=== PATIENT | female | born 1995 | race African-American/Black ===

== ENCOUNTER 2018-09-23 21:44 | Emergency (ER) | payer SELFPAY ==
--- NOTE | 2018-09-23 23:11 | ER Document Report ---
ED General - General Chief Complaint: Low Back Pain Stated Complaint: FEVER/FLANK PAIN Time Seen by Provider: 09/23/18 22:52 Notes: Patient is a 23-year-old female presents with complaint of urinary frequency and bilateral lower back pain is been ongoing for 2 days. She does not have a history of kidney stones or frequent UTIs. No fevers. No vomiting. No nausea. No diarrhea. No anterior abdominal pain. No abnormal vaginal discharge or bleeding. No other complaints at this time. Her only past medical history is asthma which she occasionally uses albuterol inhaler for. She does not smoke drink or do drugs. TRAVEL OUTSIDE OF THE [place] IN LAST 30 DAYS: No - Related Data Allergies/Adverse Reactions: fish derived [Fish derived] Allergy (Intermediate, Verified 09/23/18 21:51) VOMITING Past Medical History - Social History Smoking Status: Never Smoker Frequency of alcohol use: None Drug Abuse: None Family History: Reviewed & Not Pertinent - Past Medical History Cardiac Medical History: Reports: Hx Hypertension - pre-eclampsia during last Pulmonary Medical History: Reports: Hx Asthma Past Surgical History: Reports: Hx Section - December - Immunizations Hx Diphtheria, Pertussis, Tetanus Vaccination: No Review of Systems - Review of Systems Notes: My Normal Review Basic REVIEW OF SYSTEMS: CONSTITUTIONAL : Denies fever, chills, or sweats. Denies recent illness. RESPIRATORY: Denies cough, cold, or chest congestion. Denies shortness of breath, difficulty breathing, or wheezing. GASTROINTESTINAL: Denies abdominal pain. Denies nausea, vomiting, or diarrhea. Denies constipation. Last BM: GENITOURINARY: Any frequency FEMALE GENITOURINARY: Denies vaginal bleeding, abnormal or irregular periods. LMP: MUSCULOSKELETAL: Mild bilateral lower back pain NEUROLOGICAL: Denies altered mental status or loss of consciousness. ALL OTHER SYSTEMS REVIEWED AND NEGATIVE. Physical Exam - Vital signs Vitals: Temp Pulse Resp BP Pulse Ox 98.4 F 84 14 120/68 100 09/23/18 21:53 09/23/18 21:53 09/23/18 21:53 09/23/18 21:53 09/23/18 21:53 - Notes Notes: General Appearance: Well nourished, alert, cooperative, no acute distress, no obvious discomfort. Vitals: reviewed, See vital signs table. Lungs: No wheezing, No rales, No rhonci, No accessory muscle use, good air exchange bilaterally. Heart: Normal rate, Regular rythm, No murmur, no rub Back: Negative Fantasma sign bilaterally. No pain to palpation of lower back. Abdomen: Normal BS, soft, No rigidity, No abdominal tenderness, No guarding, no rebound, no abdominal masses, no organomegaly Neuro: speech clear, oriented x 3, normal affect, responds appropriately to questions. Course - Re-evaluation Re-evalutation: 09/24/18 00:26 Patient signs and symptoms consistent with UTI. I do not suspect kidney stone as the patient has bilateral lower back pain without flank pain. No inguinal pain. Also her pain is fairly mild she is not requiring any significant pain medication therefore I think it is highly likely is a kidney stone. We will treat her for urinary tract infection. I encouraged her return to ER immediately if she has worsening pain, fevers, vomiting, or feels unwell. Patient agrees with plan and was discharged home. Dictation of this chart was performed using voice recognition software; therefore, there may be some unintended grammatical errors. - Vital Signs Vital signs: Temp Pulse Resp BP Pulse Ox 97.8 F 79 18 114/72 100 09/24/18 00:12 09/24/18 00:12 09/24/18 00:12 09/24/18 00:12 09/24/18 00:12 - Laboratory Laboratory results interpreted by me: 09/23/18 22:58 Urine Protein 30 H Urine Blood LARGE H Urine Urobilinogen 4.0 H Ur Leukocyte Esterase TRACE H Discharge - Discharge Clinical Impression: UTI (urinary tract infection) Condition: Good Disposition: HOME, SELF-CARE Additional Instructions: Please take the antibiotics as prescribed. Please return to the ER immediately if you have worsening pain, fevers, vomiting, or feel that you are worsening in any way. Prescriptions: Cephalexin Monohydrate [Keflex 500 mg Capsule] 500 mg PO BID 5 Days #10 capsule
[2018-09-23 23:24] LABS: APPEARANCE,URINE SLIGHTLY-CLOUDY; BILIRUBIN,URINE NEGATIVE (NEGATIVE); COLOR,URINE YELLOW; GLUCOSE, URINE NEGATIVE (NEGATIVE); KETONES,URINE NEGATIVE (NEGATIVE); LEUKOCYTE ESTERASE,URINE TRACE (NEGATIVE); NITRITE,URINE NEGATIVE (NEGATIVE); PROTEIN,URINE 30 mg/dL (NEGATIVE); URINE SPECIFIC GRAVITY 1.023
[2018-09-23] MEDS ORDERED: LIDOCAINE 1% INJ-PF (10 MG/ML) 30 ML SDV INFIL ONE (23:55)
[2018-09-23] MEDS ORDERED: CEFTRIAXONE INJ 1000 MG VIAL IM ONE (23:55)
[2018-09-24 00:16] VITALS: BP 114/72
== END 2018-09-24 00:14 | disposition home or self-care (01) ==
LOC: ER 21:44
DX: N39.0 Urinary tract infection, site not specified (principal); M54.5 Low back pain
CPT/HCPCS: 99284; 96372; 81025; 81001; J3490; J0696